=== PATIENT | male | born 1995 | race Hispanic/Latino ===

== ENCOUNTER 2016-10-13 13:25 | Emergency (ER) | payer SELFPAY ==
[~2016-10-13] VITALS: Ht 182.9 cm; Wt 77.7 kg
[2016-10-13 13:28] VITALS: BP 119/78; PULSE 63; RESP 16; O2SAT 99
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
[2016-10-13 15:16] VITALS: BP 120/67; PULSE 56; RESP 56; O2SAT 98
== END 2016-10-13 15:10 | disposition home or self-care (01) ==
LOC: SED 13:25
DX: S00.83XA Contusion of other part of head, initial encounter (principal); Y04.8XXA Assault by other bodily force, initial encounter; Y92.9 Unspecified place or not applicable; Y93.89 Activity, other specified; Y99.8 Other external cause status; Z87.820 Personal history of traumatic brain injury

== ENCOUNTER 2016-10-15 17:26 | Emergency (ER) | payer SELFPAY ==
[~2016-10-15] VITALS: Ht 182.9 cm; Wt 77.7 kg
[2016-10-15 17:29] VITALS: BP 135/87; PULSE 74; RESP 16; O2SAT 99
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
[2016-10-15] MEDS ORDERED: ONDA4TAB6 PO (18:33)
[2016-10-15 19:10] VITALS: BP 135/87; PULSE 74; RESP 16; O2SAT 99
== END 2016-10-15 19:10 | disposition home or self-care (01) ==
LOC: SED 17:26
DX: S06.0X0D Concussion without loss of consciousness, subsequent encounter (principal); Y04.8XXD Assault by other bodily force, subsequent encounter; Y93.89 Activity, other specified; Y92.9 Unspecified place or not applicable; Y99.9 Unspecified external cause status